=== PATIENT | female | born 1965 | race Caucasian/White ===

== ENCOUNTER 2017-05-14 11:11 | Emergency (ER) | payer OTHER ==
[~2017-05-14] VITALS: Ht 162.6 cm; Wt 86.4 kg
[2017-05-14 11:13] VITALS: TEMP 97.9
[2017-05-14 11:52] LABS: BASO # 0.1 (0.0-0.2); BASO % 0.7 % (0.0-2.0); EOS # 0.2 (0.0-0.7); EOS % 2.1 % (0-4.0); GRAN # 4.4 (1.4-6.5); GRAN % 60.1 % (42.2-75.2); HEMATOCRIT 41.4 % (37.0-47.0); HEMOGLOBIN 13.1 g/dl (12.5-16.0); LYMPH # 2.2 (1.2-3.4); LYMPH % 30.6 % (20.0-51.0); MEAN CELL VOLUME 90 fl (80.0-100.0); MEAN CORPUSCULAR HEMOGLOBIN 29 pg (27.0-31.0); MEAN CORPUSCULAR HGB CONC 32 g/dl (33.0-37.0); MONO # 0.5 (0.1-0.6); MONO % 6.2 % (1.7-9.3); PLATELET COUNT 366 K/mm3 (130-400); WHITE BLOOD COUNT 7.2 K/mm3 (4.8-10.8)
[2017-05-14 12:10] LABS: ADJUSTED CALCIUM 9.1 mg/dL (8.4-10.2); ALANINE AMINOTRANSFERASE 30 U/L (9-52); ALBUMIN 4.2 gm/dL (3.5-5.0); ALKALINE PHOSPHATASE 73 U/L (50-136); ANION GAP 12 mmol/L (7-16); BILIRUBIN,TOTAL 0.7 mg/dL (0.0-1.0); BLOOD UREA NITROGEN 13 mg/dL (7-17); CALCIUM 9.3 mg/dL (8.4-10.2); CARBON DIOXIDE 25 mmol/L (22-30); CHLORIDE 103 mmol/L (98-107); CREATININE, serum 0.72 mg/dL (0.52-1.25); GLUCOSE 93 mg/dL (74-106); POTASSIUM 4.1 mmol/L (3.4-5.0); SODIUM 139 mmol/L (137-145); TOTAL PROTEIN 7.5 gm/dL (6.4-8.2)
[2017-05-14 12:24] LABS: TROPONIN-I < 0.012 ng/mL (0.000-0.034)
[2017-05-14 14:50] VITALS: BP 124/86; PULSE 62
== END 2017-05-14 14:50 | disposition home or self-care (01) ==
LOC: COL.ER 11:11
PROVIDERS: Physician Assistant Medical
DX: R07.9 Chest pain, unspecified (principal); M79.601 Pain in right arm; R20.2 Paresthesia of skin; F41.9 Anxiety disorder, unspecified

== ENCOUNTER 2018-10-30 08:17 | Day surgery (SDC) | payer BC ==
[~2018-10-30] VITALS: Ht 162.6 cm; Wt 83.6 kg
[2018-10-30 08:32] VITALS: BP 121/62; PULSE 73; TEMP 97.4
[2018-10-30] MEDS ORDERED: CARAFATE S1 GM/10 ML PO (08:41)
[2018-10-30] MEDS ORDERED: PROTONIX 40MG T40 MG PO (08:41)
[2018-10-30] MEDS ORDERED: MASON NATURAL1200 MG PO (08:42)
[2018-10-30 09:30] VITALS: BP 111/49; PULSE 82; TEMP 98.1
[2018-10-30 09:45] VITALS: BP 97/63; PULSE 68
[2018-10-30 10:00] VITALS: BP 109/67; PULSE 69
[2018-10-30 10:15] VITALS: BP 113/76; PULSE 66
== END 2018-10-30 10:39 | disposition home or self-care (01) ==
LOC: SDCO 08:17
DX: K21.0 Gastro-esophageal reflux disease with esophagitis (principal); Z88.0 Allergy status to penicillin; F41.9 Anxiety disorder, unspecified; K21.9 Gastro-esophageal reflux disease without esophagitis; E78.00 Pure hypercholesterolemia, unspecified
CPT/HCPCS: J2250; J3010; J7030

== ENCOUNTER 2021-06-11 10:03 | Emergency (ER) | payer BC ==
[~2021-06-11] VITALS: Ht 162.6 cm; Wt 84.5 kg
[~2021-06-11 10:03] MED LIST: CARAFATE S1 GM/10 ML PO; MASON NATURAL1200 MG PO; PROTONIX 40MG T40 MG PO
[2021-06-11 10:48] VITALS: BP 102/66; TEMP 98.2
[2021-06-11 12:19] VITALS: PULSE 73
== END 2021-06-11 12:18 | disposition home or self-care (01) ==
LOC: COL.ER 10:03
DX: M26.602 Left temporomandibular joint disorder, unspecified (principal)

== ENCOUNTER → 2022-08-05 | Outpatient (CLI) | payer BC | LOC: COL.RAD 08:26 | DX: M25.552 Pain in left hip (principal); M25.562 Pain in left knee | CPT/HCPCS: J3301; Q9967 ==

== ENCOUNTER → 2023-02-28 | Outpatient (CLI) | payer BC ==
[~2023-02-28] MED LIST changes: +NAPROSYN500 MG PO
== END ==
LOC: COL.RAD 08:00
DX: M16.12 Unilateral primary osteoarthritis, left hip (principal)
CPT/HCPCS: J3301; Q9967